=== PATIENT | male | born 1995 | race African-American/Black ===

== ENCOUNTER 2017-03-09 16:45 | Emergency (ER) | payer OTHER ==
[~2017-03-09] VITALS: Ht 160 cm; Wt 63.8 kg
[2017-03-09 17:36] LABS: URINE BILIRUBIN - DIPSTICK NEGATIVE (NEGATIVE); URINE BLOOD DIPSTICK NEGATIVE (NEGATIVE); URINE COLOR YELLOW; URINE GLUCOSE - DIPSTICK NEGATIVE (NEGATIVE); URINE KETONE NEGATIVE (NEGATIVE); URINE LEUK ESTERASE TRACE (NEGATIVE); URINE NITRITE - DIPSTICK NEGATIVE (Negative); URINE PROTEIN - DIPSTICK NEGATIVE (NEG-TRACE); URINE SPECIFIC GRAVITY >=1.030
[2017-03-09 17:37] LABS: URINE CLARITY SL CLOUDY
[2017-03-09 17:58] VITALS: BP 147/83
== END 2017-03-09 17:58 | disposition home or self-care (01) | DRG 690 ==
LOC: ED 16:45
PROVIDERS: Emergency Medicine
DX: N34.2 Other urethritis (principal); F17.290 Nicotine dependence, other tobacco product, uncomplicated

== ENCOUNTER 2018-07-06 18:53 | Emergency (ER) | payer OTHER ==
[~2018-07-06] VITALS: Ht 160 cm; Wt 70.0 kg
[2018-07-06] MEDS ORDERED: ALLEGRA-D 2424 HOUR PO (19:19)
[2018-07-06] MEDS ORDERED: AMOXICILLIN500 MG PO (19:19)
[2018-07-06 19:21] VITALS: BP 140/90
== END 2018-07-06 19:22 | disposition home or self-care (01) ==
LOC: ED 18:53
DX: J01.90 Acute sinusitis, unspecified (principal); R51 Headache; F17.210 Nicotine dependence, cigarettes, uncomplicated; R11.2 Nausea with vomiting, unspecified